=== PATIENT | female | born 1985 | race Caucasian/White ===

== ENCOUNTER 2025-01-01 09:15 | Emergency (ER) | payer OTHER ==
[~2025-01-01] VITALS: Ht 154.9 cm; Wt 109.1 kg
[~2025-01-01 09:15] MED LIST: PNV1CAPS45
[2025-01-01 09:21] VITALS: TEMP 98.2
[2025-01-01] MEDS: IBUPROFEN 600 MG TABLET PO ONE (10:35)
[2025-01-01] MEDS ORDERED: IBUP-1492 PO (10:40)
[2025-01-01 10:58] VITALS: BP 125/90; PULSE 85; RESP 16; O2SAT 98
== END 2025-01-01 10:59 | disposition home or self-care (01) ==
LOC: EMS 09:15
DX: S63.91XA Sprain of unspecified part of right wrist and hand, initial encounter (principal); S20.01XA Contusion of right breast, initial encounter; R07.89 Other chest pain; Z87.442 Personal history of urinary calculi; Z79.899 Other long term (current) drug therapy; Z90.49 Acquired absence of other specified parts of digestive tract; V43.62XA Car passenger injured in collision with other type car in traffic accident, initial encounter; Y93.89 Activity, other specified; Y92.410 Unspecified street and highway as the place of occurrence of the external cause; Y99.8 Other external cause status
CPT/HCPCS: 99283